=== PATIENT | male | born 1955 | race Two or more races ===

== ENCOUNTER 2019-05-19 18:46 | Inpatient (IN) | payer OTHER ==
[~2019-05-19] VITALS: Ht 172.7 cm; Wt 73.2 kg
[2019-05-19] MEDS ORDERED: IPRATROPIUM BROMIDE (0.02%) 0.5MG/2.5ML NEB HHN STA (18:58)
[2019-05-19] MEDS ORDERED: ALBUTEROL (0.083%) 2.5MG/3ML NEB HHN STA (18:58)
[2019-05-19] MEDS ORDERED: METHYLPREDNISOLONE SOD SUCC 125 MG/2 ML VIAL IV STA (18:58)
[2019-05-19] MEDS ORDERED: SUCCINYLCHOLINE CHLORIDE 200MG/10ML IV ONE ×2 (19:00→19:15)
[2019-05-19] MEDS ORDERED: MAGNESIUM 2 G PREMIX 50 ML IV ONE (19:00)
[2019-05-19] MEDS ORDERED: ETOMIDATE 2MG/ML 10ML VIAL IV ONE ×2 (19:00→19:15)
[2019-05-19] MEDS ORDERED: PROPOFOL 10MG/ML 100ML 100 ML IV SCH (19:15)
[2019-05-19] MEDS ORDERED: VECURONIUM BROMIDE 10 MG/VIAL IV ONE (19:15)
[2019-05-19 19:38] LABS: BASOPHILS % 1.3 % (0.0-2.0); EOSINOPHILS % 1.7 % (0.0-5.0); HEMATOCRIT. 41.5 % (42.0-52.0); HEMOGLOBIN. 13.3 g/dL (14.0-18.0); LYMPHOCYTES % 41.8 % (20.0-50.0); MEAN CORPUSCULAR HEMOGLOBIN 27.1 pg (28.0-32.0); MEAN CORPUSCULAR VOLUME 84.7 fL (80.0-94.0); MONOCYTES % 9.5 % (2.0-8.0); NEUTROPHILS % 45.7 % (40.0-76.0); RED CELL DISTRIBUTION WIDTH 15.4 % (11.6-14.6)
[2019-05-19 19:39] LABS: PROTHROMBIN TIME 10.5 sec (9.6-11.0)
[2019-05-19 19:41] LABS: CLARITY URINE CLEAR (CLEAR); COLOR URINE DARK YELLOW (YELLOW); KETONES URINE NEGATIVE (NEGATIVE); LEUKOCYTE ESTERASE URINE TRACE (NEGATIVE); NITRITE URINE NEGATIVE (NEGATIVE); OCCULT BLOOD URINE NEGATIVE (NEGATIVE); PH URINE 6.5 (4.5-8.0); PROTEIN URINE 1+ (NEGATIVE); SPECIFIC GRAVITY URINE 1.027 (1.005-1.030)
[2019-05-19 19:43] LABS: CHLORIDE 102 mEq/L (98-107)
[2019-05-19] MEDS ORDERED: LEVOFLOXACIN 500MG PREMIX 100 ML IV ONE (19:45)
[2019-05-19 19:48] LABS: ETHANOL BLOOD < 10 mg/dL
[2019-05-19 19:59] LABS: *AMPHETAMINES SCREEN URINE NEGATIVE (NEGATIVE); *BARBITURATES SCREEN URINE NEGATIVE (NEGATIVE); *BENZODIAZEPINES SCREEN URINE NEGATIVE (NEGATIVE); *COCAINE SCREEN URINE PRESUMTIVE POSITIVE (NEGATIVE); METHADONE URINE SCREEN NEGATIVE (NEGATIVE); OPIATES URINE SCREEN PRESUMTIVE POSITIVE (NEGATIVE)
[2019-05-19 19:59] LABS: BG BASE EXCESS -0.1 mmol/L (-2.0-2.0); BG DEOXYHEMOGLOBIN 0.7 % (0.0-5.0); BG FRACTION INSPIRED OXYGEN 100; BG HCO3 ACT 28.1 mmol/L (22.0-26.0); BG METHEMOGLOBIN 0.4 % (0.0-1.5); BG OXYGEN SATURATION 99.3 % (92.0-98.5); BG OXYHEMOGLOBIN 95.9 % (94.0-97.0); BG PCO2 61.5 mmHg (35.0-45.0); BG PH 7.278 (7.350-7.450); BG PO2 228.5 mmHg (75.0-100.0); BG SAMPLE SITE RIGHT RADIAL; BG TIDAL VOLUME(mL) 500 mL; BG TOTAL HEMOGLOBIN 14.1 g/dL (12.0-18.0); BG VENT MODE VENT - A/C; BG VENT RATE 14 set
[2019-05-19 20:00] LABS: CANNABINOID URINE SCREEN NEGATIVE (NEGATIVE); PHENCYCLIDINE URINE SCREEN NEGATIVE (NEGATIVE)
[2019-05-19] MEDS ORDERED: SODIUM CHLORIDE 0.9% 1,000 ML IV ONE (20:00)
[2019-05-19 20:01] LABS: MEAN PLATELET VOLUME 8.7 fl (7.4-10.4); PLATELET 223 x1000/uL (130-400)
[2019-05-19] MEDS ORDERED: ONDANSETRON HCL 4MG/2ML INJ IV PRN (20:15)
[2019-05-19] MEDS ORDERED: ACETAMINOPHEN 325MG TABLET PO PRN (20:15)
[2019-05-19] MEDS ORDERED: LORAZEPAM 2MG/ML CPJ IV ONE (20:15)
[2019-05-19] MEDS ORDERED: METHYLPREDNISOLONE SOD SUCC 40 MG/ML VIAL IV SCH (20:15)
[2019-05-19] MEDS ORDERED: MIDAZOLAM HCL 50 MG in DEXTROSE 5% WATER 40 ML IV ONE (20:15)
[2019-05-19] MEDS ORDERED: IPRATROPIUM/ALBUTEROL 0.5-3(2.5)MG/3ML NEB INH PRN (20:15)
[2019-05-19] MEDS ORDERED: CEFTRIAXONE 1 G PREMIX 50 ML IV SCH (20:15)
[2019-05-19] MEDS ORDERED: MIDAZOLAM HCL 50 MG in DEXTROSE 5% WATER 40 ML IV NR (20:15)
[2019-05-19] MEDS ORDERED: HYDRALAZINE 20MG/ML VIAL IV PRN (20:15)
[2019-05-19] MEDS ORDERED: IPRATROPIUM/ALBUTEROL 0.5-3(2.5)MG/3ML NEB HHN PRN (20:30)
[2019-05-19] MEDS ORDERED: FAMOTIDINE 20MG/2ML VIAL IV SCH (21:00)
[2019-05-19 21:36] LABS: CHLORIDE 106 mEq/L (98-107)
[2019-05-19] MEDS ORDERED: CEFTRIAXONE 1 G PREMIX 50 ML IV NR (22:15)
[2019-05-19] MEDS ORDERED: ENOXAPARIN 40MG/0.4ML SYR SUBCUT NR (22:45)
[2019-05-19] MEDS ORDERED: AZITHROMYCIN 500 MG in DEXT 5% WATER 250 ML IV NR (22:45)
[2019-05-19] MEDS: SODIUM CHLORIDE 0.9% 1,000 ML IV SCH (22:58)
[2019-05-20] VITALS (34 sets, daily range): BP systolic 85–147; BP diastolic 35–97
[2019-05-20] MEDS ORDERED: IPRATROPIUM/ALBUTEROL 0.5-3(2.5)MG/3ML NEB HHN SCH
[2019-05-20] MEDS: METHYLPREDNISOLONE SOD SUCC 125 MG/2 ML VIAL IV SCH ×4 (03:17→22:00)
[2019-05-20] MEDS: IPRATROPIUM/ALBUTEROL 0.5-3(2.5)MG/3ML NEB HHN SCH ×6 (04:18→23:55)
[2019-05-20 05:26] LABS: BASOPHILS % 0.2 % (0.0-2.0); HEMATOCRIT. 43.3 % (42.0-52.0); LYMPHOCYTES % 7.7 % (20.0-50.0); MEAN CORPUSCULAR HEMOGLOBIN 27.3 pg (28.0-32.0); MEAN CORPUSCULAR VOLUME 84.4 fL (80.0-94.0); MEAN PLATELET VOLUME 8.6 fl (7.4-10.4); MONOCYTES % 3.9 % (2.0-8.0); NEUTROPHILS % 88.2 % (40.0-76.0); PLATELET 153 x1000/uL (130-400); RED BLOOD CELL COUNT 5.13 mill/uL (4.7-6.1); RED CELL DISTRIBUTION WIDTH 15.2 % (11.6-14.6)
[2019-05-20] MEDS: PANTOPRAZOLE SODIUM 40 MG/VIAL IV SCH (05:37)
[2019-05-20 05:48] LABS: CREATINE KINASE MB FRACTION 4.8 ng/mL (0.5-3.6)
[2019-05-20 07:56] LABS: BG BASE EXCESS -1.3 mmol/L (-2.0-2.0); BG CARBOXYHEMOGLOBIN 0.9 % (0.5-1.5); BG DEOXYHEMOGLOBIN 3.9 % (0.0-5.0); BG FRACTION INSPIRED OXYGEN 40; BG HCO3 ACT 23.2 mmol/L (22.0-26.0); BG OXYGEN SATURATION 96.1 % (92.0-98.5); BG OXYHEMOGLOBIN 95.2 % (94.0-97.0); BG PCO2 38.6 mmHg (35.0-45.0); BG PH 7.397 (7.350-7.450); BG SAMPLE SITE RIGHT RADIAL; BG TIDAL VOLUME(mL) 500 mL; BG VENT MODE VENT - A/C; BG VENT RATE 14 set
[2019-05-20] MEDS ORDERED: CLONIDINE 0.1MG TABLET PO PRN (08:00)
[2019-05-20] MEDS: SODIUM CHLORIDE 0.9% 1,000 ML IV SCH (08:19)
[2019-05-20] MEDS: PROPOFOL 10MG/ML 100ML 100 ML IV PRN ×4 (08:20→19:37)
[2019-05-20] MEDS: LORATADINE 10MG TABLET PO SCH (08:23)
[2019-05-20] MEDS: DEXT 5%/0.45% NACL KCL 20MEQ/L 1,000 ML IV SCH ×2 (11:21→21:37)
[2019-05-20] MEDS ORDERED: METRONIDAZOLE 500 MG PREMIX 100 ML IV SCH (12:00)
[2019-05-20] MEDS ORDERED: CEFEPIME 1,000 MG in DEXTROSE 5% WATER 50 ML IV SCH (12:00)
[2019-05-20 12:08] LABS: HEPATITIS B SURFACE ANTIGEN NEGATIVE
[2019-05-20 12:38] LABS: HEPATITIS A AB IGM NEGATIVE (NEGATIVE)
[2019-05-20] MEDS ORDERED: MET5 MT (13:00)
[2019-05-20] MEDS ORDERED: LISI40TA4 PO (13:00)
[2019-05-20] MEDS ORDERED: CLON2TAB11 PO (13:00)
[2019-05-20] MEDS ORDERED: ASPI-1393 PO (13:00)
[2019-05-20] MEDS ORDERED: OXYC30TA89 PO (13:00)
[2019-05-20] MEDS ORDERED: LIDOCAINE HCL 1% 20ML VIAL (Pyxis) INJ ONE (13:36)
[2019-05-20] MEDS ORDERED: IOHEXOL-350 100 ML BOTTLE ONE (15:08)
[2019-05-20 16:08] LABS: CHLORIDE 104 mEq/L (98-107)
[2019-05-20] MEDS: ACETYLCYSTEINE 100MG/ML 10% VIAL 4ML INH SCH ×2 (16:12→23:55)
[2019-05-20 16:19] LABS: CREATINE KINASE 255 IU/L (39-308)
[2019-05-20] MEDS: MONTELUKAST SODIUM 10MG TABLET PO SCH (17:00)
[2019-05-20] MEDS: PIPERACILLIN/TAZOBACTAM 3.375 G in DEXT 5% WATER 100 ML IV SCH (22:00)
[2019-05-20] MEDS ORDERED: CEFTRIAXONE 1 G PREMIX 50 ML IV SCH (22:00)
[2019-05-20] MEDS: ENOXAPARIN 40MG/0.4ML SYR SUBCUT SCH (22:02)
[2019-05-20] MEDS ORDERED: VANCOMYCIN 1500MG in DEXTROSE 5% WATER 250ML IV SCH (23:00)
[2019-05-21] VITALS (90 sets, daily range): BP systolic 118–157; BP diastolic 67–104
[2019-05-21 00:53] LABS: CREATINE KINASE MB FRACTION 3.3 ng/mL (0.5-3.6)
[2019-05-21] MEDS: PROPOFOL 10MG/ML 100ML 100 ML IV PRN ×5 (01:48→22:50)
[2019-05-21] MEDS ORDERED: AZITHROMYCIN 500 MG in DEXT 5% WATER 250 ML IV SCH (05:00)
[2019-05-21 05:31] LABS: HEMATOCRIT. 42.5 % (42.0-52.0); HEMOGLOBIN. 13.7 g/dL (14.0-18.0); MEAN CORPUSCULAR HEMOGLOBIN 26.8 pg (28.0-32.0); MEAN CORPUSCULAR VOLUME 83.1 fL (80.0-94.0); MEAN PLATELET VOLUME 8.9 fl (7.4-10.4); PLATELET 184 x1000/uL (130-400); RED BLOOD CELL COUNT 5.11 mill/uL (4.7-6.1); RED CELL DISTRIBUTION WIDTH 15.4 % (11.6-14.6)
[2019-05-21 05:33] LABS: CHLORIDE 108 mEq/L (98-107)
[2019-05-21] MEDS: METHYLPREDNISOLONE SOD SUCC 125 MG/2 ML VIAL IV SCH ×2 (05:59→08:08)
[2019-05-21] MEDS: PIPERACILLIN/TAZOBACTAM 3.375 G in DEXT 5% WATER 100 ML IV SCH ×4 (05:59→22:10)
[2019-05-21] MEDS: DEXT 5%/0.45% NACL KCL 20MEQ/L 1,000 ML IV SCH ×4 (06:00→22:11)
[2019-05-21] MEDS: PANTOPRAZOLE SODIUM 40 MG/VIAL IV SCH ×2 (06:14→20:50)
[2019-05-21] MEDS ORDERED: VANCOMYCIN 1 G PREMIX 200 ML IV SCH (07:00)
[2019-05-21 07:25] LABS: PLATELET ESTIMATE NORMAL
[2019-05-21] MEDS: LORATADINE 10MG TABLET PO SCH (08:08)
[2019-05-21 08:39] LABS: BG BASE EXCESS 1.6 mmol/L (-2.0-2.0); BG CARBOXYHEMOGLOBIN 0.5 % (0.5-1.5); BG DEOXYHEMOGLOBIN 4.3 % (0.0-5.0); BG FRACTION INSPIRED OXYGEN 40; BG HCO3 ACT 24.4 mmol/L (22.0-26.0); BG METHEMOGLOBIN 0.3 % (0.0-1.5); BG OXYGEN SATURATION 95.7 % (92.0-98.5); BG OXYHEMOGLOBIN 94.9 % (94.0-97.0); BG PCO2 33.4 mmHg (35.0-45.0); BG PH 7.482 (7.350-7.450); BG PO2 73.5 mmHg (75.0-100.0); BG SAMPLE SITE RIGHT RADIAL; BG TIDAL VOLUME(mL) 500 mL; BG TOTAL HEMOGLOBIN 14.6 g/dL (12.0-18.0); BG VENT MODE VENT - A/C; BG VENT RATE 14 set
[2019-05-21] MEDS: IPRATROPIUM/ALBUTEROL 0.5-3(2.5)MG/3ML NEB HHN SCH ×4 (08:56→20:34)
[2019-05-21] MEDS: ACETYLCYSTEINE 100MG/ML 10% VIAL 4ML INH SCH ×2 (08:56→15:56)
[2019-05-21] MEDS: METHYLPREDNISOLONE SOD SUCC 40 MG/ML VIAL IV SCH ×2 (13:54→22:09)
[2019-05-21] MEDS: AMLODIPINE 2.5MG TABLET PO SCH ×2 (13:54→20:51)
[2019-05-21] MEDS: MONTELUKAST SODIUM 10MG TABLET PO SCH (16:00)
[2019-05-21] MEDS: VANCOMYCIN 1500MG in DEXTROSE 5% WATER 250ML IV SCH (20:03)
[2019-05-21] MEDS: ENOXAPARIN 40MG/0.4ML SYR SUBCUT SCH (20:51)
[2019-05-22] VITALS (86 sets, daily range): BP systolic 116–158; BP diastolic 65–103
[2019-05-22] MEDS: ACETYLCYSTEINE 100MG/ML 10% VIAL 4ML INH SCH ×2 (00:11→09:06)
[2019-05-22] MEDS: IPRATROPIUM/ALBUTEROL 0.5-3(2.5)MG/3ML NEB HHN SCH ×6 (00:11→20:04)
[2019-05-22] MEDS: PIPERACILLIN/TAZOBACTAM 3.375 G in DEXT 5% WATER 100 ML IV SCH ×4 (03:17→22:24)
[2019-05-22] MEDS: PROPOFOL 10MG/ML 100ML 100 ML IV PRN ×3 (03:18→20:48)
[2019-05-22 05:51] LABS: HEMATOCRIT. 44.4 % (42.0-52.0); HEMOGLOBIN. 14.5 g/dL (14.0-18.0); MEAN CORPUSCULAR HEMOGLOBIN 27.1 pg (28.0-32.0); MEAN CORPUSCULAR VOLUME 83.1 fL (80.0-94.0); MEAN PLATELET VOLUME 8.8 fl (7.4-10.4); PLATELET 185 x1000/uL (130-400); RED BLOOD CELL COUNT 5.34 mill/uL (4.7-6.1); RED CELL DISTRIBUTION WIDTH 15.2 % (11.6-14.6)
[2019-05-22 05:58] LABS: CHLORIDE 107 mEq/L (98-107)
[2019-05-22 06:05] LABS: LDL CHOLESTEROL 108 mg/dL (5-100)
[2019-05-22 06:06] LABS: CREATINE KINASE 114 IU/L (39-308)
[2019-05-22 06:08] LABS: HDL CHOLESTEROL 64 mg/dL (40-59)
[2019-05-22] MEDS: METHYLPREDNISOLONE SOD SUCC 40 MG/ML VIAL IV SCH ×2 (06:08→18:34)
[2019-05-22 06:09] LABS: CREATINE KINASE MB FRACTION 1.2 ng/mL (0.5-3.6)
[2019-05-22] MEDS: VANCOMYCIN 1500MG in DEXTROSE 5% WATER 250ML IV SCH (06:09)
[2019-05-22] MEDS: DEXT 5%/0.45% NACL KCL 20MEQ/L 1,000 ML IV SCH ×2 (06:09→10:34)
[2019-05-22 06:51] LABS: PLATELET ESTIMATE NORMAL
[2019-05-22] MEDS ORDERED: PROPOFOL 10MG/ML 100ML 100 ML IV PRN (08:00)
[2019-05-22] MEDS: LORATADINE 10MG TABLET PO SCH (08:28)
[2019-05-22] MEDS: AMLODIPINE 2.5MG TABLET PO SCH ×2 (08:28→22:10)
[2019-05-22] MEDS: PANTOPRAZOLE SODIUM 40 MG/VIAL IV SCH ×2 (08:28→22:10)
[2019-05-22 08:33] LABS: BG BASE EXCESS 0.9 mmol/L (-2.0-2.0); BG CARBOXYHEMOGLOBIN 0.1 % (0.5-1.5); BG DEOXYHEMOGLOBIN 3.9 % (0.0-5.0); BG FRACTION INSPIRED OXYGEN 40; BG HCO3 ACT 24.3 mmol/L (22.0-26.0); BG METHEMOGLOBIN 0.1 % (0.0-1.5); BG OXYGEN SATURATION 96.1 % (92.0-98.5); BG OXYHEMOGLOBIN 95.9 % (94.0-97.0); BG PCO2 35.4 mmHg (35.0-45.0); BG PH 7.455 (7.350-7.450); BG PO2 78.6 mmHg (75.0-100.0); BG SAMPLE SITE RIGHT RADIAL; BG TIDAL VOLUME(mL) 500 mL; BG TOTAL HEMOGLOBIN 14.8 g/dL (12.0-18.0); BG VENT MODE VENT - A/C; BG VENT RATE 14 set
[2019-05-22] MEDS: VANCOMYCIN 1250MG in DEXTROSE 5% WATER 250ML IV SCH (18:34)
[2019-05-22] MEDS: MONTELUKAST SODIUM 10MG TABLET PO SCH (18:34)
[2019-05-22] MEDS: ENOXAPARIN 40MG/0.4ML SYR SUBCUT SCH (22:11)
[2019-05-23] VITALS (96 sets, daily range): BP systolic 113–191; BP diastolic 36–150
[2019-05-23] MEDS: IPRATROPIUM/ALBUTEROL 0.5-3(2.5)MG/3ML NEB HHN SCH ×6 (00:05→20:48)
[2019-05-23] MEDS: PROPOFOL 10MG/ML 100ML 100 ML IV PRN ×2 (01:30→05:04)
[2019-05-23] MEDS: DEXT 5%/0.45% NACL KCL 20MEQ/L 1,000 ML IV SCH ×2 (01:35→20:25)
[2019-05-23] MEDS: VANCOMYCIN 1250MG in DEXTROSE 5% WATER 250ML IV SCH ×3 (01:35→16:55)
[2019-05-23 05:01] LABS: BASOPHILS % 0.5 % (0.0-2.0); HEMOGLOBIN. 14.4 g/dL (14.0-18.0); LYMPHOCYTES % 8.9 % (20.0-50.0); MEAN CORPUSCULAR HEMOGLOBIN 27.2 pg (28.0-32.0); MEAN PLATELET VOLUME 9.1 fl (7.4-10.4); NEUTROPHILS % 83.6 % (40.0-76.0); PLATELET 165 x1000/uL (130-400); RED CELL DISTRIBUTION WIDTH 15.2 % (11.6-14.6)
[2019-05-23] MEDS: PIPERACILLIN/TAZOBACTAM 3.375 G in DEXT 5% WATER 100 ML IV SCH ×4 (05:04→21:47)
[2019-05-23 05:08] LABS: CHLORIDE 105 mEq/L (98-107)
[2019-05-23] MEDS: METHYLPREDNISOLONE SOD SUCC 40 MG/ML VIAL IV SCH ×2 (06:15→16:54)
[2019-05-23] MEDS ORDERED: POLYETHYLENE GLYCOL 3350 (17GM) 1 DOSE PACK PO PRN (08:00)
[2019-05-23] MEDS ORDERED: LORAZEPAM 2MG/ML CPJ IV NR (09:45)
[2019-05-23] MEDS: PANTOPRAZOLE SODIUM 40 MG/VIAL IV SCH ×2 (09:49→21:48)
[2019-05-23] MEDS ORDERED: MORPHINE SULFATE 2 MG/ML CPJ (NOT FOR IM USE) IV NR (10:15)
[2019-05-23 11:03] LABS: BG BASE EXCESS 2.3 mmol/L (-2.0-2.0); BG CARBOXYHEMOGLOBIN 0.2 % (0.5-1.5); BG FRACTION INSPIRED OXYGEN 40; BG HCO3 ACT 26.5 mmol/L (22.0-26.0); BG METHEMOGLOBIN 0.4 % (0.0-1.5); BG OXYHEMOGLOBIN 93.4 % (94.0-97.0); BG PCO2 39.9 mmHg (35.0-45.0); BG PO2 68.7 mmHg (75.0-100.0); BG PRESSURE SUPPORT 8; BG SAMPLE SITE LEFT BRACHIAL; BG TOTAL HEMOGLOBIN 15.9 g/dL (12.0-18.0); BG VENT MODE VENT - CPAP
[2019-05-23] MEDS: FENTANYL CITRATE/PF 500 MCG in SODIUM CHLORIDE 0.9% 40 ML IV PRN ×2 (12:53→22:54)
[2019-05-23] MEDS: AMLODIPINE 2.5MG TABLET PO SCH ×2 (16:47→21:00)
[2019-05-23] MEDS: LORATADINE 10MG TABLET PO SCH (16:47)
[2019-05-23] MEDS: QUETIAPINE FUMARATE 25MG TABLET PO SCH (16:54)
[2019-05-23] MEDS: FOLIC ACID 1MG TABLET NG SCH (16:54)
[2019-05-23] MEDS: MONTELUKAST SODIUM 10MG TABLET PO SCH (16:55)
[2019-05-23] MEDS: THIAMINE HCL 100MG TABLET NG SCH (16:55)
[2019-05-23] MEDS: ENOXAPARIN 40MG/0.4ML SYR SUBCUT SCH (21:48)
[2019-05-23] MEDS: LORAZEPAM 2MG/ML CPJ IV PRN (21:48)
[2019-05-24] VITALS (87 sets, daily range): BP systolic 87–125; BP diastolic 24–85
[2019-05-24] MEDS: VANCOMYCIN 1250MG in DEXTROSE 5% WATER 250ML IV SCH ×2 (01:51→10:30)
[2019-05-24] MEDS: IPRATROPIUM/ALBUTEROL 0.5-3(2.5)MG/3ML NEB HHN SCH ×6 (02:47→20:00)
[2019-05-24] MEDS: PIPERACILLIN/TAZOBACTAM 3.375 G in DEXT 5% WATER 100 ML IV SCH ×4 (04:20→21:16)
[2019-05-24] MEDS: METHYLPREDNISOLONE SOD SUCC 40 MG/ML VIAL IV SCH ×2 (05:24→17:31)
[2019-05-24] MEDS: FENTANYL CITRATE/PF 500 MCG in SODIUM CHLORIDE 0.9% 40 ML IV PRN ×3 (05:24→22:34)
[2019-05-24 05:34] LABS: BASOPHILS % 0.3 % (0.0-2.0); EOSINOPHILS % 0.1 % (0.0-5.0); HEMOGLOBIN. 14.5 g/dL (14.0-18.0); LYMPHOCYTES % 14.3 % (20.0-50.0); MEAN CORPUSCULAR VOLUME 83.8 fL (80.0-94.0); MONOCYTES % 10.3 % (2.0-8.0); RED BLOOD CELL COUNT 5.38 mill/uL (4.7-6.1); RED CELL DISTRIBUTION WIDTH 15.1 % (11.6-14.6)
[2019-05-24 05:39] LABS: CHLORIDE 103 mEq/L (98-107)
[2019-05-24 07:04] LABS: MEAN PLATELET VOLUME 8.6 fl (7.4-10.4); PLATELET 160 x1000/uL (130-400)
[2019-05-24 07:17] LABS: HIV SCREEN 4G Non Reactive (Non Reactive)
[2019-05-24] MEDS: DEXT 5%/0.45% NACL KCL 20MEQ/L 1,000 ML IV SCH (08:04)
[2019-05-24] MEDS: PANTOPRAZOLE SODIUM 40 MG/VIAL IV SCH ×2 (09:46→20:27)
[2019-05-24] MEDS: FUROSEMIDE 40MG/4ML VIAL IVP SCH (09:47)
[2019-05-24] MEDS: FOLIC ACID 1MG TABLET NG SCH (10:27)
[2019-05-24] MEDS: THIAMINE HCL 100MG TABLET NG SCH (10:28)
[2019-05-24] MEDS: AMLODIPINE 2.5MG TABLET PO SCH ×2 (10:28→20:28)
[2019-05-24] MEDS: LORATADINE 10MG TABLET PO SCH (10:28)
[2019-05-24] MEDS: POTASSIUM CHLORIDE 20MEQ/PACKET PO SCH (10:29)
[2019-05-24] MEDS: QUETIAPINE FUMARATE 25MG TABLET PO SCH (10:29)
[2019-05-24] MEDS: LORAZEPAM 2MG/ML CPJ IV PRN ×2 (10:33→20:14)
[2019-05-24] MEDS: MONTELUKAST SODIUM 10MG TABLET PO SCH (16:26)
[2019-05-24 17:11] LABS: BG BASE EXCESS 3.9 mmol/L (-2.0-2.0); BG CARBOXYHEMOGLOBIN 0.6 % (0.5-1.5); BG DEOXYHEMOGLOBIN 5.3 % (0.0-5.0); BG FRACTION INSPIRED OXYGEN 35; BG HCO3 ACT 29.3 mmol/L (22.0-26.0); BG METHEMOGLOBIN 0.2 % (0.0-1.5); BG OXYGEN SATURATION 94.7 % (92.0-98.5); BG OXYHEMOGLOBIN 93.9 % (94.0-97.0); BG PCO2 46.8 mmHg (35.0-45.0); BG PH 7.415 (7.350-7.450); BG PO2 72.1 mmHg (75.0-100.0); BG PRESSURE SUPPORT 12; BG SAMPLE SITE RIGHT RADIAL; BG TIDAL VOLUME(mL) 500 mL; BG TOTAL HEMOGLOBIN 15.9 g/dL (12.0-18.0); BG VENT MODE VENT - SIMV; BG VENT RATE 8 set
[2019-05-24] MEDS: VANCOMYCIN 1 G PREMIX 200 ML IV SCH (17:32)
[2019-05-24] MEDS: ENOXAPARIN 40MG/0.4ML SYR SUBCUT SCH (20:28)
[2019-05-25] VITALS (83 sets, daily range): BP systolic 71–121; BP diastolic 48–99
[2019-05-25] MEDS: VANCOMYCIN 1 G PREMIX 200 ML IV SCH ×3 (00:12→17:17)
[2019-05-25] MEDS: IPRATROPIUM/ALBUTEROL 0.5-3(2.5)MG/3ML NEB HHN SCH ×5 (00:18→20:47)
[2019-05-25] MEDS: LORAZEPAM 2MG/ML CPJ IV PRN ×2 (01:47→12:24)
[2019-05-25] MEDS: PIPERACILLIN/TAZOBACTAM 3.375 G in DEXT 5% WATER 100 ML IV SCH ×4 (03:02→21:15)
[2019-05-25] MEDS: FENTANYL CITRATE/PF 500 MCG in SODIUM CHLORIDE 0.9% 40 ML IV PRN ×2 (03:14→08:28)
[2019-05-25] MEDS: METHYLPREDNISOLONE SOD SUCC 40 MG/ML VIAL IV SCH ×2 (05:02→17:13)
[2019-05-25 05:22] LABS: BASOPHILS % 0.2 % (0.0-2.0); CHLORIDE 99 mEq/L (98-107); HEMATOCRIT. 44.1 % (42.0-52.0); HEMOGLOBIN. 14.6 g/dL (14.0-18.0); MEAN CORPUSCULAR HEMOGLOBIN 27.2 pg (28.0-32.0); MEAN CORPUSCULAR VOLUME 82.4 fL (80.0-94.0); MEAN PLATELET VOLUME 8.5 fl (7.4-10.4); NEUTROPHILS % 75.8 % (40.0-76.0); PLATELET 194 x1000/uL (130-400); RED BLOOD CELL COUNT 5.35 mill/uL (4.7-6.1); RED CELL DISTRIBUTION WIDTH 14.7 % (11.6-14.6)
[2019-05-25 08:26] LABS: BG BASE EXCESS 1.2 mmol/L (-2.0-2.0); BG CARBOXYHEMOGLOBIN 0.6 % (0.5-1.5); BG DEOXYHEMOGLOBIN 6.3 % (0.0-5.0); BG FRACTION INSPIRED OXYGEN 35; BG HCO3 ACT 25.2 mmol/L (22.0-26.0); BG METHEMOGLOBIN 0.3 % (0.0-1.5); BG OXYGEN SATURATION 93.6 % (92.0-98.5); BG OXYHEMOGLOBIN 92.8 % (94.0-97.0); BG PCO2 38.3 mmHg (35.0-45.0); BG PH 7.436 (7.350-7.450); BG PO2 68.4 mmHg (75.0-100.0); BG PRESSURE SUPPORT 12; BG SAMPLE SITE RIGHT RADIAL; BG TIDAL VOLUME(mL) 500 mL; BG TOTAL HEMOGLOBIN 15.6 g/dL (12.0-18.0); BG VENT MODE VENT - SIMV; BG VENT RATE 8 set
[2019-05-25] MEDS: THIAMINE HCL 100MG TABLET NG SCH (08:37)
[2019-05-25] MEDS: PANTOPRAZOLE SODIUM 40 MG/VIAL IV SCH ×2 (08:37→20:01)
[2019-05-25] MEDS: QUETIAPINE FUMARATE 25MG TABLET PO SCH (08:37)
[2019-05-25] MEDS: LORATADINE 10MG TABLET PO SCH (08:37)
[2019-05-25] MEDS: FUROSEMIDE 40MG/4ML VIAL IVP SCH (08:37)
[2019-05-25] MEDS: FOLIC ACID 1MG TABLET NG SCH (08:37)
[2019-05-25] MEDS: POTASSIUM CHLORIDE 20MEQ/PACKET PO SCH (08:37)
[2019-05-25] MEDS: AMLODIPINE 2.5MG TABLET PO SCH ×2 (08:38→20:03)
[2019-05-25] MEDS: MORPHINE SULFATE 2 MG/ML CPJ (NOT FOR IM USE) IV PRN ×3 (09:15→17:49)
[2019-05-25 13:46] LABS: BG BASE EXCESS 6.9 mmol/L (-2.0-2.0); BG CARBOXYHEMOGLOBIN 0.5 % (0.5-1.5); BG DEOXYHEMOGLOBIN 9.5 % (0.0-5.0); BG FRACTION INSPIRED OXYGEN 40; BG HCO3 ACT 31.5 mmol/L (22.0-26.0); BG METHEMOGLOBIN 0.4 % (0.0-1.5); BG OXYGEN SATURATION 90.4 % (92.0-98.5); BG OXYHEMOGLOBIN 89.6 % (94.0-97.0); BG PCO2 44.3 mmHg (35.0-45.0); BG PO2 55.4 mmHg (75.0-100.0); BG PRESSURE SUPPORT 12; BG SAMPLE SITE RIGHT RADIAL; BG TOTAL HEMOGLOBIN 15.8 g/dL (12.0-18.0); BG VENT MODE VENT - CPAP
[2019-05-25] MEDS: MONTELUKAST SODIUM 10MG TABLET PO SCH (17:13)
[2019-05-25] MEDS ORDERED: MORPHINE SULFATE 2 MG/ML CPJ (NOT FOR IM USE) IV PRN (18:00)
[2019-05-25] MEDS: ENOXAPARIN 40MG/0.4ML SYR SUBCUT SCH (20:00)
[2019-05-28 04:13] LABS: INFLUENZA A AB CF 1:16 (Neg:<1:8)
== END 2019-05-25 23:15 | disposition left against medical advice (07) | DRG 720 ==
LOC: ER 18:46 → EDBEDREQ 18:58 → MICUNO 19:44 → EDBEDREQ 19:56 → EDBEDREQTM 19:56 → ENRESERV 05-20 01:38
PROVIDERS: ADMIT Internal Medicine; ATTEND Internal Medicine
PROC: 5A1955Z Respiratory Ventilation, Greater than 96 Consecutive Hours (ICD-10-PCS; 2019-05-19)
PROC: 0BH17EZ Insertion of Endotracheal Airway into Trachea, Via Natural or Artificial Opening (ICD-10-PCS; 2019-05-19)
PROC: 02HV33Z Insertion of Infusion Device into Superior Vena Cava, Percutaneous Approach (ICD-10-PCS; principal; 2019-05-20)
PROC: B548ZZA Ultrasonography of Superior Vena Cava, Guidance (ICD-10-PCS; 2019-05-20)
DX: A41.9 Sepsis, unspecified organism (principal); J96.02 Acute respiratory failure with hypercapnia; J69.0 Pneumonitis due to inhalation of food and vomit; G92 Toxic encephalopathy; I50.23 Acute on chronic systolic (congestive) heart failure; J43.9 Emphysema, unspecified; E46 Unspecified protein-calorie malnutrition; T17.890A Other foreign object in other parts of respiratory tract causing asphyxiation, initial encounter; J68.0 Bronchitis and pneumonitis due to chemicals, gases, fumes and vapors; J45.901 Unspecified asthma with (acute) exacerbation; E87.5 Hyperkalemia; I42.9 Cardiomyopathy, unspecified; M62.82 Rhabdomyolysis; E78.1 Pure hyperglyceridemia; F14.10 Cocaine abuse, uncomplicated; I11.0 Hypertensive heart disease with heart failure; K83.8 Other specified diseases of biliary tract; B18.2 Chronic viral hepatitis C; D72.823 Leukemoid reaction; T38.0X5A Adverse effect of glucocorticoids and synthetic analogues, initial encounter; X58.XXXA Exposure to other specified factors, initial encounter; Y93.89 Activity, other specified; Y92.89 Other specified places as the place of occurrence of the external cause; Z78.1 Physical restraint status; Z79.899 Other long term (current) drug therapy; Z68.24 Body mass index [BMI] 24.0-24.9, adult; Z79.82 Long term (current) use of aspirin
CPT/HCPCS: 36415; 36600; 71045; 71275; 74018; 76700; 76937; 80048; 80061; 80076; 80202; 80305; 80320; 81003; 82375; 82550; 82553; 82805; 82962; 83036; 83605; 83735; 83880; 84145; 84443; 84478; 84484; 85379; 86705; 86709; 86710; 86803; 87340; 87389; 93005; 93306; 93970; 94002; 94003; 94640; 96374; 99285; C1725; C9113; J0330; J0456; J0692; J0696; J1650; J1940; J1956; J2060; J2250; J2270; J2405; J2543; J2704; J2920; J2930; J3010; J3370; J3475; J3490; J7030; J7060; J7608; J7611; J7620; Q9967; G0480

== ENCOUNTER 2019-08-13 02:12 | Emergency (ER) | payer OTHER ==
[~2019-08-13] VITALS: Ht 182.9 cm; Wt 87.0 kg
[~2019-08-13 02:12] MED LIST: ASPI-1393 PO; CLON2TAB11 PO; LISI40TA4 PO; MET5 MT; OXYC30TA89 PO
[2019-08-13 04:34] LABS: HEMATOCRIT. 38.8 % (42.0-52.0); HEMOGLOBIN. 12.5 g/dL (14.0-18.0); MEAN CORPUSCULAR VOLUME 83.9 fL (80.0-94.0); MEAN PLATELET VOLUME 8.1 fl (7.4-10.4); PLATELET 113 x1000/uL (130-400); RED BLOOD CELL COUNT 4.62 mill/uL (4.7-6.1); RED CELL DISTRIBUTION WIDTH 16.6 % (11.6-14.6)
[2019-08-13 04:40] LABS: CHLORIDE 103 mEq/L (98-107)
[2019-08-13 04:54] LABS: PLATELET ESTIMATE DECREASED
[2019-08-13] MEDS ORDERED: IPRATROPIUM BROMIDE (0.02%) 0.5MG/2.5ML NEB HHN STA (05:22)
[2019-08-13] MEDS ORDERED: ALBUTEROL (0.083%) 2.5MG/3ML NEB HHN STA (05:22)
[2019-08-13 06:20] VITALS: BP 134/83
== END 2019-08-13 07:09 | disposition home or self-care (01) ==
LOC: ER 02:12
DX: L02.413 Cutaneous abscess of right upper limb (principal); J20.9 Acute bronchitis, unspecified
CPT/HCPCS: 36415; 71045; 80053; 83880; 84484; 85025; 93005; 94640; 99283; J7611; Z7610

== ENCOUNTER 2019-09-13 04:57 | Emergency (ER) | payer OTHER ==
[~2019-09-13] VITALS: Ht 182.9 cm; Wt 79.0 kg
[2019-09-13] MEDS ORDERED: ALBUTEROL (0.083%) 2.5MG/3ML NEB HHN STA (06:10)
[2019-09-13] MEDS ORDERED: IPRATROPIUM BROMIDE (0.02%) 0.5MG/2.5ML NEB HHN STA (06:10)
[2019-09-13] MEDS ORDERED: METHYLPREDNISOLONE SOD SUCC 125 MG/2 ML VIAL IV STA (06:10)
[2019-09-13 06:38] LABS: BASOPHILS % 0.5 % (0.0-2.0); EOSINOPHILS % 1.2 % (0.0-5.0); HEMATOCRIT. 36.7 % (42.0-52.0); HEMOGLOBIN. 11.9 g/dL (14.0-18.0); LYMPHOCYTES % 14.8 % (20.0-50.0); MEAN CORPUSCULAR HEMOGLOBIN 26.9 pg (28.0-32.0); MEAN CORPUSCULAR VOLUME 82.8 fL (80.0-94.0); MONOCYTES % 12.7 % (2.0-8.0); NEUTROPHILS % 70.8 % (40.0-76.0); PLATELET 154 x1000/uL (130-400); RED BLOOD CELL COUNT 4.43 mill/uL (4.7-6.1); RED CELL DISTRIBUTION WIDTH 15.9 % (11.6-14.6)
[2019-09-13 06:47] LABS: CHLORIDE 101 mEq/L (98-107)
[2019-09-13] MEDS ORDERED: CEFTRIAXONE 1 G PREMIX 50 ML IV ONE (07:30)
[2019-09-13] MEDS ORDERED: AZITHROMYCIN 500 MG in DEXT 5% WATER 250 ML IV SCH (07:30)
[2019-09-13 08:16] LABS: BG BASE EXCESS 1.4 mmol/L (-2.0-2.0); BG CARBOXYHEMOGLOBIN 1.9 % (0.5-1.5); BG DEOXYHEMOGLOBIN 8.6 % (0.0-5.0); BG FRACTION INSPIRED OXYGEN 21; BG HCO3 ACT 25.8 mmol/L (22.0-26.0); BG METHEMOGLOBIN 0.1 % (0.0-1.5); BG OXYGEN SATURATION 91.2 % (92.0-98.5); BG OXYHEMOGLOBIN 89.4 % (94.0-97.0); BG PH 7.427 (7.350-7.450); BG PO2 56.9 mmHg (75.0-100.0); BG SAMPLE SITE RIGHT BRACHIAL; BG TOTAL HEMOGLOBIN 11.9 g/dL (12.0-18.0); BG VENT MODE ROOM AIR
[2019-09-13 11:40] VITALS: BP 112/69
[2019-09-13] MEDS ORDERED: IPRATROPIUM/ALBUTEROL 0.5-3(2.5)MG/3ML NEB HHN PRN (11:45)
[2019-09-13] MEDS ORDERED: NICOTINE 14MG PATCH TD SCH (11:45)
[2019-09-13] MEDS ORDERED: BUDESONIDE 0.5MG/2ML NEB HHN SCH (11:45)
[2019-09-13] MEDS ORDERED: IPRATROPIUM/ALBUTEROL 0.5-3(2.5)MG/3ML NEB HHN SCH (12:00)
[2019-09-13] MEDS ORDERED: GUAIFENESIN 600MG ER TABLET PO SCH (21:00)
[2019-09-13] MEDS ORDERED: FLUTICASONE PROPIONATE 50MCG/SPRAY BOTTLE BOTHNSTRLS SCH (21:00)
== END 2019-09-13 11:40 | disposition left against medical advice (07) ==
LOC: ER 05:25 → CANBEDREQ 15:56
DX: R09.02 Hypoxemia (principal); J18.9 Pneumonia, unspecified organism; J44.9 Chronic obstructive pulmonary disease, unspecified; I11.9 Hypertensive heart disease without heart failure; F17.200 Nicotine dependence, unspecified, uncomplicated; Z88.6 Allergy status to analgesic agent; Z79.82 Long term (current) use of aspirin; Z85.89 Personal history of malignant neoplasm of other organs and systems
CPT/HCPCS: 36415; 36600; 71045; 80053; 82375; 82805; 83880; 84484; 85025; 87804; 93005; 96365; 96368; 96375; 99285; J0456; J0696; J2930; J7060; J7611; Z7610

== ENCOUNTER 2019-10-24 03:16 | Inpatient (IN) | payer OTHER ==
[~2019-10-24] VITALS: Ht 182.9 cm; Wt 72.6 kg
[2019-10-24] VITALS (7 sets, daily range): BP systolic 124–144; BP diastolic 71–94
[~2019-10-24 03:16] MED LIST changes: -ASPI-1393 PO; +ASPI-1497 PO
[2019-10-24] MEDS ORDERED: MAGNESIUM 2 G PREMIX 50 ML IV STA (03:46)
[2019-10-24] MEDS ORDERED: IPRATROPIUM BROMIDE (0.02%) 0.5MG/2.5ML NEB HHN STA (03:46)
[2019-10-24] MEDS ORDERED: ALBUTEROL (0.083%) 2.5MG/3ML NEB HHN STA (03:46)
[2019-10-24] MEDS ORDERED: METHYLPREDNISOLONE SOD SUCC 125 MG/2 ML VIAL IV STA (03:46)
[2019-10-24 04:25] LABS: HEMATOCRIT 45.3 % (42.0-52.0); HEMOGLOBIN 14.5 g/dL (14.0-18.0); MEAN CORPUSCULAR HEMOGLOBIN 26.8 pg (28.0-32.0); MEAN CORPUSCULAR VOLUME 83.6 fL (80.0-94.0); PLATELET 147 x1000/uL (130-400); RED BLOOD CELL COUNT 5.41 mill/uL (4.7-6.1); RED CELL DISTRIBUTION WIDTH 16.5 % (11.6-14.6)
[2019-10-24 05:45] LABS: CHLORIDE 105 mEq/L (98-107)
[2019-10-24] MEDS ORDERED: IPRATROPIUM/ALBUTEROL 0.5-3(2.5)MG/3ML NEB HHN PRN (11:00)
[2019-10-24] MEDS ORDERED: ACETAMINOPHEN 325MG TABLET PO PRN (11:00)
[2019-10-24] MEDS ORDERED: BENZONATATE 100MG CAPSULE PO PRN (11:00)
[2019-10-24] MEDS ORDERED: ONDANSETRON HCL 4MG/2ML INJ IV PRN (11:00)
[2019-10-24] MEDS ORDERED: DIATR MEGLU/DIATRIZOATE SOLN 30ML PO NR (12:00)
[2019-10-24] MEDS: IPRATROPIUM/ALBUTEROL 0.5-3(2.5)MG/3ML NEB HHN SCH ×3 (12:42→20:39)
[2019-10-24] MEDS: LOSARTAN POTASSIUM 50 MG TABLET PO SCH (13:11)
[2019-10-24] MEDS: METHYLPREDNISOLONE SOD SUCC 40 MG/ML VIAL IV SCH ×2 (13:13→21:17)
[2019-10-24] MEDS: METHADONE HCL 10MG TABLET PO SCH (13:13)
[2019-10-24] MEDS: ENOXAPARIN 40MG/0.4ML SYR SUBCUT SCH (13:14)
[2019-10-24 17:37] LABS: CLARITY URINE CLEAR (CLEAR); COLOR URINE YELLOW (YELLOW); KETONES URINE NEGATIVE (NEGATIVE); LEUKOCYTE ESTERASE URINE NEGATIVE (NEGATIVE); NITRITE URINE NEGATIVE (NEGATIVE); OCCULT BLOOD URINE NEGATIVE (NEGATIVE); PH URINE 6.5 (4.5-8.0); PROTEIN URINE NEGATIVE (NEGATIVE); SPECIFIC GRAVITY URINE 1.025 (1.005-1.030)
[2019-10-24 17:49] LABS: *AMPHETAMINES SCREEN URINE NEGATIVE (NEGATIVE); *BARBITURATES SCREEN URINE NEGATIVE (NEGATIVE)
[2019-10-24 17:50] LABS: *BENZODIAZEPINES SCREEN URINE NEGATIVE (NEGATIVE); *COCAINE SCREEN URINE PRESUMTIVE POSITIVE (NEGATIVE); CANNABINOID URINE SCREEN NEGATIVE (NEGATIVE); METHADONE URINE SCREEN PRESUMTIVE POSITIVE (NEGATIVE); OPIATES URINE SCREEN PRESUMTIVE POSITIVE (NEGATIVE); PHENCYCLIDINE URINE SCREEN NEGATIVE (NEGATIVE)
[2019-10-24] MEDS: FLUTICASONE PROPIONATE 50MCG/SPRAY BOTTLE BOTHNSTRLS SCH (21:16)
[2019-10-24] MEDS: GUAIFENESIN 600MG ER TABLET PO SCH (21:17)
[2019-10-25] VITALS (11 sets, daily range): BP systolic 96–138; BP diastolic 7–85
[2019-10-25] MEDS: IPRATROPIUM/ALBUTEROL 0.5-3(2.5)MG/3ML NEB HHN SCH ×6 (00:50→20:20)
[2019-10-25] MEDS: METHYLPREDNISOLONE SOD SUCC 40 MG/ML VIAL IV SCH ×3 (04:59→20:00)
[2019-10-25] MEDS: LOSARTAN POTASSIUM 50 MG TABLET PO SCH (08:10)
[2019-10-25] MEDS: GUAIFENESIN 600MG ER TABLET PO SCH ×2 (08:10→20:55)
[2019-10-25] MEDS: ASPIRIN 81MG TABLET PO SCH (08:10)
[2019-10-25] MEDS: METHADONE HCL 10MG TABLET PO SCH (08:11)
[2019-10-25] MEDS: FLUTICASONE PROPIONATE 50MCG/SPRAY BOTTLE BOTHNSTRLS SCH ×2 (08:14→20:55)
[2019-10-25] MEDS ORDERED: DIATR MEGLU/DIATRIZOATE SOLN 30ML PO NR (11:30)
[2019-10-25] MEDS: ENOXAPARIN 40MG/0.4ML SYR SUBCUT SCH (15:55)
[2019-10-26] VITALS (8 sets, daily range): BP systolic 107–143; BP diastolic 74–99
[2019-10-26] MEDS: IPRATROPIUM/ALBUTEROL 0.5-3(2.5)MG/3ML NEB HHN SCH ×6 (00:07→21:03)
[2019-10-26] MEDS: METHYLPREDNISOLONE SOD SUCC 40 MG/ML VIAL IV SCH ×3 (04:00→21:03)
[2019-10-26 07:44] LABS: BASOPHILS % 0.7 % (0.0-2.0); EOSINOPHILS % 0.4 % (0.0-5.0); HEMATOCRIT. 41.6 % (42.0-52.0); HEMOGLOBIN. 13.4 g/dL (14.0-18.0); MEAN CORPUSCULAR HEMOGLOBIN 26.7 pg (28.0-32.0); MEAN CORPUSCULAR VOLUME 82.7 fL (80.0-94.0); MEAN PLATELET VOLUME 8.3 fl (7.4-10.4); MONOCYTES % 7.5 % (2.0-8.0); NEUTROPHILS % 64.4 % (40.0-76.0); PLATELET 164 x1000/uL (130-400); RED BLOOD CELL COUNT 5.03 mill/uL (4.7-6.1); RED CELL DISTRIBUTION WIDTH 16.2 % (11.6-14.6)
[2019-10-26 08:03] LABS: CHLORIDE 105 mEq/L (98-107)
[2019-10-26] MEDS ORDERED: LIDOCAINE HCL 1% 20ML VIAL (Pyxis) INJ ONE (08:12)
[2019-10-26] MEDS ORDERED: SODIUM BICARBONATE 4% (2.4MEQ) 5ML VIAL IV ONE (08:13)
[2019-10-26] MEDS: FLUTICASONE PROPIONATE 50MCG/SPRAY BOTTLE BOTHNSTRLS SCH ×2 (09:00→21:03)
[2019-10-26] MEDS: METHADONE HCL 10MG TABLET PO SCH (12:38)
[2019-10-26] MEDS: ASPIRIN 81MG TABLET PO SCH (12:38)
[2019-10-26] MEDS: LOSARTAN POTASSIUM 50 MG TABLET PO SCH (12:38)
[2019-10-26] MEDS: GUAIFENESIN 600MG ER TABLET PO SCH ×2 (12:38→21:10)
[2019-10-26] MEDS ORDERED: IOHEXOL-300 100 ML BOTTLE ONE (15:43)
[2019-10-26] MEDS: ENOXAPARIN 40MG/0.4ML SYR SUBCUT SCH (15:57)
[2019-10-26] MEDS: TAMSULOSIN HCL 0.4MG SR CAPSULE PO SCH (17:43)
[2019-10-27] MEDS: IPRATROPIUM/ALBUTEROL 0.5-3(2.5)MG/3ML NEB HHN SCH ×4 (05:01→12:42)
[2019-10-27] MEDS: METHYLPREDNISOLONE SOD SUCC 40 MG/ML VIAL IV SCH (06:12)
[2019-10-27 08:00] VITALS: BP 118/75
[2019-10-27] MEDS: FLUTICASONE PROPIONATE 50MCG/SPRAY BOTTLE BOTHNSTRLS SCH (08:18)
[2019-10-27 08:20] VITALS: BP 145/95
[2019-10-27] MEDS: METHADONE HCL 10MG TABLET PO SCH (08:20)
[2019-10-27] MEDS: LOSARTAN POTASSIUM 50 MG TABLET PO SCH (08:20)
[2019-10-27] MEDS: GUAIFENESIN 600MG ER TABLET PO SCH (08:21)
[2019-10-27] MEDS: TAMSULOSIN HCL 0.4MG SR CAPSULE PO SCH (08:21)
[2019-10-27] MEDS: ASPIRIN 81MG TABLET PO SCH (08:21)
[2019-10-27 10:00] VITALS: BP 133/85
[2019-10-27] MEDS ORDERED: LEVOFLOXACIN 250MG TABLET PO SCH (11:30)
[2019-10-27] MEDS ORDERED: GUAI600T26 MT (11:38)
[2019-10-27] MEDS ORDERED: ALBU18HF2 IH (11:38)
[2019-10-27] MEDS ORDERED: LEVO500T2 MT (11:38)
[2019-10-27] MEDS ORDERED: P20 MT (11:38)
[2019-10-27 12:00] VITALS: BP 125/85
[2019-10-27 12:28] VITALS: BP 145/95
[2019-10-27 14:00] VITALS: BP 122/84
[2019-10-27] MEDS ORDERED: ACETYLCYSTEINE 100MG/ML 10% VIAL 4ML INH SCH (14:00)
[2019-10-27] MEDS ORDERED: PREDNISONE 20MG TABLET PO SCH (18:00)
== END 2019-10-27 14:45 | disposition home or self-care (01) | DRG 144 ==
LOC: ER 03:16 → 5EST 04:38 → ENRESERV 08:27
PROVIDERS: ADMIT Internal Medicine; ATTEND Internal Medicine
PROC: 5A09357 Assistance with Respiratory Ventilation, Less than 24 Consecutive Hours, Continuous Positive Airway Pressure (ICD-10-PCS; 2019-10-24)
PROC: 5A09357 Assistance with Respiratory Ventilation, Less than 24 Consecutive Hours, Continuous Positive Airway Pressure (ICD-10-PCS; 2019-10-25)
PROC: 02HV33Z Insertion of Infusion Device into Superior Vena Cava, Percutaneous Approach (ICD-10-PCS; principal; 2019-10-26)
PROC: B548ZZA Ultrasonography of Superior Vena Cava, Guidance (ICD-10-PCS; 2019-10-26)
PROC: B5181ZA Fluoroscopy of Superior Vena Cava using Low Osmolar Contrast, Guidance (ICD-10-PCS; 2019-10-26)
DX: J68.0 Bronchitis and pneumonitis due to chemicals, gases, fumes and vapors (principal); J96.00 Acute respiratory failure, unspecified whether with hypoxia or hypercapnia; I11.0 Hypertensive heart disease with heart failure; I50.22 Chronic systolic (congestive) heart failure; F14.90 Cocaine use, unspecified, uncomplicated; F11.20 Opioid dependence, uncomplicated; B19.20 Unspecified viral hepatitis C without hepatic coma; J06.9 Acute upper respiratory infection, unspecified; F17.210 Nicotine dependence, cigarettes, uncomplicated; Z79.899 Other long term (current) drug therapy; Z88.8 Allergy status to other drugs, medicaments and biological substances; Z79.82 Long term (current) use of aspirin; Z71.51 Drug abuse counseling and surveillance of drug abuser
CPT/HCPCS: 36415; 36573; 71045; 74178; 80048; 80053; 80305; 81003; 83880; 85025; 85027; 93005; 94640; 99291; C1725; J1650; J2920; J2930; J3475; J3490; J7611; J7620; Q9963; Q9967

== ENCOUNTER 2020-02-06 05:57 | Inpatient (IN) | payer OTHER ==
[~2020-02-06] VITALS: Ht 182.9 cm; Wt 69.4 kg
[2020-02-06] VITALS (40 sets, daily range): BP systolic 103–158; BP diastolic 64–111
[~2020-02-06 05:57] MED LIST changes: +ALBU18HF2 IH; +BENZ-16 MT; +FLUT1DIS3 INH; +GUAI600T26 MT; +LEVO500T2 MT; +MED4 MT; +METH10OR11 PO
[2020-02-06] MEDS ORDERED: SODIUM CHLORIDE 0.9% 500 ML IV ONE (06:07)
[2020-02-06] MEDS ORDERED: ACETAMINOPHEN 650MG SUPP PR STA (06:07)
[2020-02-06 07:39] LABS: HEMATOCRIT. 44.3 % (42.0-52.0); HEMOGLOBIN. 14.4 g/dL (14.0-18.0); MEAN CORPUSCULAR HEMOGLOBIN 27.5 pg (28.0-32.0); MEAN CORPUSCULAR VOLUME 84.3 fL (80.0-94.0); MEAN PLATELET VOLUME 8.3 fl (7.4-10.4); PLATELET 102 x1000/uL (130-400); RED BLOOD CELL COUNT 5.26 mill/uL (4.7-6.1); RED CELL DISTRIBUTION WIDTH 15.9 % (11.6-14.6)
[2020-02-06 07:46] LABS: CHLORIDE 101 mEq/L (98-107)
[2020-02-06 07:47] LABS: D-DIMER 0.52 mg/L FEU (<0.50); PROTHROMBIN TIME 10.7 sec (9.6-11.0)
[2020-02-06 07:50] LABS: ETHANOL BLOOD < 10 mg/dL
[2020-02-06 07:51] LABS: C REACTIVE PROTEIN QUANT 4.9 mg/L (0.0-3.0)
[2020-02-06 07:54] LABS: CREATINE KINASE 342 IU/L (39-308)
[2020-02-06] MEDS ORDERED: LEVOFLOXACIN 500MG PREMIX 100 ML IV ONE (08:00)
[2020-02-06 08:10] LABS: PLATELET ESTIMATE DECREASED
[2020-02-06 09:04] LABS: BG BASE EXCESS 2.9 mmol/L (-2.0-2.0); BG CARBOXYHEMOGLOBIN 2.2 % (0.5-1.5); BG DEOXYHEMOGLOBIN 0.1 % (0.0-5.0); BG FRACTION INSPIRED OXYGEN 99.9; BG HCO3 ACT 29.1 mmol/L (22.0-26.0); BG METHEMOGLOBIN 0.3 % (0.0-1.5); BG OXYGEN SATURATION 99.9 % (92.0-98.5); BG OXYHEMOGLOBIN 97.4 % (94.0-97.0); BG PCO2 51.2 mmHg (35.0-45.0); BG PH 7.373 (7.350-7.450); BG PO2 245.6 mmHg (75.0-100.0); BG SAMPLE SITE RIGHT RADIAL; BG TOTAL HEMOGLOBIN 13.3 g/dL (12.0-18.0); BG VENT MODE MASK - NRB
[2020-02-06] MEDS ORDERED: CLONIDINE 0.1MG TABLET PO PRN (09:30)
[2020-02-06] MEDS ORDERED: METOCLOPRAMIDE HCL 10MG/2ML VIAL IV PRN (09:30)
[2020-02-06] MEDS: AZITHROMYCIN 500 MG TABLET PO SCH ×2 (10:00→11:19)
[2020-02-06] MEDS: LOSARTAN POTASSIUM 25 MG TABLET PO SCH (10:00)
[2020-02-06] MEDS: CEFTRIAXONE 1 G PREMIX 50 ML IV SCH (11:19)
[2020-02-06] MEDS: ENOXAPARIN 40MG/0.4ML SYR SUBCUT SCH (11:19)
[2020-02-06] MEDS ORDERED: LIDOCAINE HCL/PF 1% 2ML VIAL ONE (11:42)
[2020-02-06 13:30] LABS: CLARITY URINE CLEAR (CLEAR); COLOR URINE YELLOW (YELLOW); KETONES URINE NEGATIVE (NEGATIVE); LEUKOCYTE ESTERASE URINE NEGATIVE (NEGATIVE); NITRITE URINE NEGATIVE (NEGATIVE); OCCULT BLOOD URINE NEGATIVE (NEGATIVE); PH URINE 7.5 (4.5-8.0); PROTEIN URINE NEGATIVE (NEGATIVE); SPECIFIC GRAVITY URINE 1.019 (1.005-1.030)
[2020-02-06 13:51] LABS: *AMPHETAMINES SCREEN URINE NEGATIVE (NEGATIVE); *BARBITURATES SCREEN URINE NEGATIVE (NEGATIVE); *BENZODIAZEPINES SCREEN URINE NEGATIVE (NEGATIVE)
[2020-02-06 13:52] LABS: *COCAINE SCREEN URINE PRESUMTIVE POSITIVE (NEGATIVE); CANNABINOID URINE SCREEN NEGATIVE (NEGATIVE); METHADONE URINE SCREEN PRESUMTIVE POSITIVE (NEGATIVE); OPIATES URINE SCREEN NEGATIVE (NEGATIVE); PHENCYCLIDINE URINE SCREEN NEGATIVE (NEGATIVE)
[2020-02-06] MEDS: METHADONE HCL 10MG TABLET PO SCH (14:44)
[2020-02-06] MEDS ORDERED: METHYLPREDNISOLONE SOD SUCC 40 MG/ML VIAL IV SCH (15:00)
[2020-02-06] MEDS ORDERED: ALBUTEROL 6.7GM HFA INHALER ORI SCH (19:00)
[2020-02-06] MEDS: METHYLPREDNISOLONE SOD SUCC 40 MG/ML VIAL IV SCH (22:40)
[2020-02-07] VITALS (41 sets, daily range): BP systolic 116–146; BP diastolic 63–98
[2020-02-07 06:43] LABS: HEMATOCRIT. 42.7 % (42.0-52.0); HEMOGLOBIN. 13.6 g/dL (14.0-18.0); MEAN CORPUSCULAR HEMOGLOBIN 26.9 pg (28.0-32.0); MEAN CORPUSCULAR VOLUME 84.4 fL (80.0-94.0); MEAN PLATELET VOLUME 8.5 fl (7.4-10.4); PLATELET 133 x1000/uL (130-400); RED BLOOD CELL COUNT 5.06 mill/uL (4.7-6.1); RED CELL DISTRIBUTION WIDTH 15.6 % (11.6-14.6)
[2020-02-07] MEDS: METHYLPREDNISOLONE SOD SUCC 40 MG/ML VIAL IV SCH ×3 (06:44→22:43)
[2020-02-07 06:53] LABS: CHLORIDE 102 mEq/L (98-107)
[2020-02-07] MEDS: AZITHROMYCIN 500 MG TABLET PO SCH (09:46)
[2020-02-07] MEDS: METHADONE HCL 10MG TABLET PO SCH (09:54)
[2020-02-07] MEDS: LOSARTAN POTASSIUM 25 MG TABLET PO SCH (09:54)
[2020-02-07] MEDS: ENOXAPARIN 40MG/0.4ML SYR SUBCUT SCH (09:54)
[2020-02-07 10:19] LABS: PLATELET ESTIMATE NORMAL
[2020-02-07] MEDS: CEFTRIAXONE 1 G PREMIX 50 ML IV SCH (11:07)
[2020-02-07 12:22] LABS: BG BASE EXCESS 4.3 mmol/L (-2.0-2.0); BG CARBOXYHEMOGLOBIN 0.3 % (0.5-1.5); BG DEOXYHEMOGLOBIN 0.4 % (0.0-5.0); BG FRACTION INSPIRED OXYGEN 100; BG HCO3 ACT 32.1 mmol/L (22.0-26.0); BG METHEMOGLOBIN 0.3 % (0.0-1.5); BG OXYGEN SATURATION 99.6 % (92.0-98.5); BG PCO2 61.8 mmHg (35.0-45.0); BG PH 7.333 (7.350-7.450); BG PO2 249.2 mmHg (75.0-100.0); BG SAMPLE SITE RIGHT RADIAL; BG TOTAL HEMOGLOBIN 14.5 g/dL (12.0-18.0); BG VENT MODE MASK - NRB
[2020-02-08] VITALS (28 sets, daily range): BP systolic 71–135; BP diastolic 41–92
[2020-02-08 01:12] LABS: BG BILEVEL POS AIRWAY PRESSURE 15/5; BG CARBOXYHEMOGLOBIN 0.3 % (0.5-1.5); BG DEOXYHEMOGLOBIN 2.9 % (0.0-5.0); BG FRACTION INSPIRED OXYGEN 60; BG HCO3 ACT 33.4 mmol/L (22.0-26.0); BG METHEMOGLOBIN 0.3 % (0.0-1.5); BG OXYGEN SATURATION 97.1 % (92.0-98.5); BG OXYHEMOGLOBIN 96.5 % (94.0-97.0); BG PH 7.364 (7.350-7.450); BG PO2 92.2 mmHg (75.0-100.0); BG SAMPLE SITE RIGHT RADIAL; BG TOTAL HEMOGLOBIN 14.8 g/dL (12.0-18.0); BG VENT MODE MASK - BIPAP
[2020-02-08] MEDS: ALBUTEROL (0.083%) 2.5MG/3ML NEB HHN SCH ×4 (01:42→21:48)
[2020-02-08] MEDS: METHYLPREDNISOLONE SOD SUCC 40 MG/ML VIAL IV SCH ×3 (05:37→21:59)
[2020-02-08] MEDS ORDERED: ALBUTEROL (0.083%) 2.5MG/3ML NEB HHN SCH (06:00)
[2020-02-08 06:08] LABS: BASOPHILS % 0.1 % (0.0-2.0); HEMATOCRIT. 43.7 % (42.0-52.0); HEMOGLOBIN. 14.3 g/dL (14.0-18.0); LYMPHOCYTES % 8.4 % (20.0-50.0); MEAN CORPUSCULAR HEMOGLOBIN 27.4 pg (28.0-32.0); MEAN CORPUSCULAR VOLUME 83.7 fL (80.0-94.0); MEAN PLATELET VOLUME 8.3 fl (7.4-10.4); NEUTROPHILS % 87.5 % (40.0-76.0); PLATELET 147 x1000/uL (130-400); RED BLOOD CELL COUNT 5.22 mill/uL (4.7-6.1); RED CELL DISTRIBUTION WIDTH 15.6 % (11.6-14.6)
[2020-02-08 06:20] LABS: CHLORIDE 101 mEq/L (98-107)
[2020-02-08] MEDS: AZITHROMYCIN 500 MG TABLET PO SCH (09:59)
[2020-02-08] MEDS: ENOXAPARIN 40MG/0.4ML SYR SUBCUT SCH (09:59)
[2020-02-08] MEDS: CEFTRIAXONE 1 G PREMIX 50 ML IV SCH (09:59)
[2020-02-08] MEDS: METHADONE HCL 10MG TABLET PO SCH (10:00)
[2020-02-08] MEDS: LOSARTAN POTASSIUM 25 MG TABLET PO SCH (10:00)
[2020-02-09] VITALS (12 sets, daily range): BP systolic 96–131; BP diastolic 50–80
[2020-02-09] MEDS: ACETAMINOPHEN 325MG TABLET PO PRN (00:39)
[2020-02-09] MEDS: ALBUTEROL (0.083%) 2.5MG/3ML NEB HHN SCH ×5 (01:09→20:32)
[2020-02-09] MEDS: METHYLPREDNISOLONE SOD SUCC 40 MG/ML VIAL IV SCH ×2 (05:41→14:40)
[2020-02-09] MEDS: MORPHINE SULFATE 2 MG/ML CPJ (NOT FOR IM USE) IV PRN ×2 (06:16→23:44)
[2020-02-09 07:24] LABS: BG BASE EXCESS -0.5 mmol/L (-2.0-2.0); BG CARBOXYHEMOGLOBIN 0.3 % (0.5-1.5); BG DEOXYHEMOGLOBIN 7.7 % (0.0-5.0); BG FRACTION INSPIRED OXYGEN 44; BG HCO3 ACT 23.4 mmol/L (22.0-26.0); BG METHEMOGLOBIN 0.2 % (0.0-1.5); BG OXYGEN SATURATION 92.3 % (92.0-98.5); BG OXYHEMOGLOBIN 91.8 % (94.0-97.0); BG PCO2 36.2 mmHg (35.0-45.0); BG PH 7.428 (7.350-7.450); BG PO2 63.2 mmHg (75.0-100.0); BG SAMPLE SITE RIGHT RADIAL; BG TOTAL HEMOGLOBIN 13.6 g/dL (12.0-18.0); BG VENT MODE NASAL CANNULA
[2020-02-09] MEDS: ENOXAPARIN 40MG/0.4ML SYR SUBCUT SCH (08:12)
[2020-02-09] MEDS: LOSARTAN POTASSIUM 25 MG TABLET PO SCH ×2 (08:13→08:19)
[2020-02-09] MEDS: AZITHROMYCIN 500 MG TABLET PO SCH (08:13)
[2020-02-09] MEDS: METHADONE HCL 10MG TABLET PO SCH (08:14)
[2020-02-09] MEDS: CEFTRIAXONE 1 G PREMIX 50 ML IV SCH (10:53)
[2020-02-09] MEDS ORDERED: ALBU18HF2 IH (11:56)
[2020-02-09] MEDS ORDERED: FLUT1DIS3 INH (11:56)
[2020-02-09] MEDS ORDERED: CARV12.545 MT (11:56)
[2020-02-09] MEDS ORDERED: LOSA25TA3 PO (11:56)
[2020-02-09] MEDS ORDERED: MED4 MT (11:56)
[2020-02-09] MEDS ORDERED: IPRA3AMP9 NEB (11:56)
[2020-02-10] VITALS (10 sets, daily range): BP systolic 100–134; BP diastolic 60–82
[2020-02-10] MEDS: ALBUTEROL (0.083%) 2.5MG/3ML NEB HHN SCH ×5 (02:07→23:44)
[2020-02-10] MEDS: AZITHROMYCIN 500 MG TABLET PO SCH (08:46)
[2020-02-10] MEDS: LOSARTAN POTASSIUM 25 MG TABLET PO SCH (08:46)
[2020-02-10] MEDS: METHADONE HCL 10MG TABLET PO SCH (08:49)
[2020-02-10] MEDS: ENOXAPARIN 40MG/0.4ML SYR SUBCUT SCH (08:50)
[2020-02-10] MEDS ORDERED: PREDNISONE 20MG TABLET PO SCH (09:00)
[2020-02-10] MEDS: CEFTRIAXONE 1 G PREMIX 50 ML IV SCH (10:36)
[2020-02-10 11:52] LABS: BG BASE EXCESS -1.3 mmol/L (-2.0-2.0); BG CARBOXYHEMOGLOBIN 0.8 % (0.5-1.5); BG DEOXYHEMOGLOBIN 13.3 % (0.0-5.0); BG FRACTION INSPIRED OXYGEN 21; BG METHEMOGLOBIN 0.3 % (0.0-1.5); BG OXYGEN SATURATION 86.6 % (92.0-98.5); BG OXYHEMOGLOBIN 85.6 % (94.0-97.0); BG PH 7.441 (7.350-7.450); BG PO2 49.3 mmHg (75.0-100.0); BG SAMPLE SITE RIGHT RADIAL; BG TOTAL HEMOGLOBIN 15.4 g/dL (12.0-18.0); BG VENT MODE ROOM AIR
[2020-02-10] MEDS: ACETAMINOPHEN 325MG TABLET PO PRN (14:36)
[2020-02-11] VITALS: BP 113/66
[2020-02-11 00:16] VITALS: BP 113/58
== END 2020-02-11 01:30 | disposition home or self-care (01) | DRG 816 ==
LOC: ER 06:10 → MICUSO 06:35 → EDBEDREQ 06:41 → EDBEDREQTM 06:41 → ENRESERV 07:38 → 5EST 02-08 00:15
PROVIDERS: ADMIT Internal Medicine; ATTEND Internal Medicine
PROC: 5A09357 Assistance with Respiratory Ventilation, Less than 24 Consecutive Hours, Continuous Positive Airway Pressure (ICD-10-PCS; principal; 2020-02-07)
DX: T40.5X1A Poisoning by cocaine, accidental (unintentional), initial encounter (principal); J96.21 Acute and chronic respiratory failure with hypoxia; A41.9 Sepsis, unspecified organism; G92 Toxic encephalopathy; J18.9 Pneumonia, unspecified organism; I11.0 Hypertensive heart disease with heart failure; E87.2 Acidosis; D69.6 Thrombocytopenia, unspecified; I50.22 Chronic systolic (congestive) heart failure; F11.20 Opioid dependence, uncomplicated; J44.1 Chronic obstructive pulmonary disease with (acute) exacerbation; I42.9 Cardiomyopathy, unspecified; J68.0 Bronchitis and pneumonitis due to chemicals, gases, fumes and vapors; F17.200 Nicotine dependence, unspecified, uncomplicated; J44.0 Chronic obstructive pulmonary disease with (acute) lower respiratory infection; B19.20 Unspecified viral hepatitis C without hepatic coma; D72.810 Lymphocytopenia; F14.10 Cocaine abuse, uncomplicated; Z20.828 Contact with and (suspected) exposure to other viral communicable diseases; Z88.8 Allergy status to other drugs, medicaments and biological substances; Z79.2 Long term (current) use of antibiotics; Z79.82 Long term (current) use of aspirin; Z79.899 Other long term (current) drug therapy; Y92.89 Other specified places as the place of occurrence of the external cause; Z71.51 Drug abuse counseling and surveillance of drug abuser; Z99.81 Dependence on supplemental oxygen
CPT/HCPCS: 36415; 36600; 71045; 80048; 80053; 80305; 80320; 81003; 82375; 82550; 82728; 82805; 83605; 83615; 83880; 84145; 84484; 85025; 85379; 85384; 86140; 87635; 87804; 93005; 99291; J0696; J1650; J2270; J2765; J2920; J3490; J7040; J7512; G0480

== ENCOUNTER 2020-03-01 15:59 | Emergency (ER) | payer OTHER ==
[~2020-03-01] VITALS: Ht 190.5 cm; Wt 68.0 kg
[~2020-03-01 15:59] MED LIST changes: +CARV12.545 MT; +IPRA3AMP9 NEB; -LEVO500T2 MT; -LISI40TA4 PO; +LOSA25TA3 PO
[2020-03-01] MEDS ORDERED: CLINDAMYCIN 600 MG in DEXTROSE 5% WATER 50 ML IV ONE (17:45)
[2020-03-01] MEDS ORDERED: HYDROCODONE/ACETAMINOPHEN 5/325MG TABLET PO ONE (17:45)
[2020-03-01] MEDS ORDERED: CLINDAMYCIN 600MG PREMIX 50 ML IV SCH (18:00)
[2020-03-01 19:12] LABS: BASOPHILS % 1.1 % (0.0-2.0); EOSINOPHILS % 2.5 % (0.0-5.0); HEMATOCRIT. 38.1 % (42.0-52.0); HEMOGLOBIN. 12.1 g/dL (14.0-18.0); LYMPHOCYTES % 30.5 % (20.0-50.0); MEAN CORPUSCULAR HEMOGLOBIN 26.8 pg (28.0-32.0); MEAN CORPUSCULAR VOLUME 84.1 fL (80.0-94.0); MEAN PLATELET VOLUME 7.5 fl (7.4-10.4); MONOCYTES % 11.2 % (2.0-8.0); NEUTROPHILS % 54.7 % (40.0-76.0); PLATELET 178 x1000/uL (130-400); RED BLOOD CELL COUNT 4.53 mill/uL (4.7-6.1); RED CELL DISTRIBUTION WIDTH 15.5 % (11.6-14.6)
[2020-03-01 19:27] LABS: CHLORIDE 101 mEq/L (98-107)
[2020-03-01 22:21] VITALS: BP 133/74
[2020-03-01] MEDS ORDERED: ACETAMINOPHEN 325MG TABLET PO ONE (22:30)
== END 2020-03-01 23:02 ==
LOC: ER 15:59
DX: L03.115 Cellulitis of right lower limb (principal); I10 Essential (primary) hypertension; I25.2 Old myocardial infarction; J44.9 Chronic obstructive pulmonary disease, unspecified; Z88.6 Allergy status to analgesic agent
CPT/HCPCS: 36415; 71045; 80053; 83880; 84484; 85025; 93005; 93971; 96365; 99285; J3490; J7060

== ENCOUNTER 2020-03-15 01:22 | Emergency (ER) | payer OTHER ==
[~2020-03-15] VITALS: Ht 182.9 cm; Wt 77.0 kg
[2020-03-15] MEDS ORDERED: LOSARTAN POTASSIUM 25 MG TABLET PO ONE (02:00)
[2020-03-15 02:24] VITALS: BP 142/79
== END 2020-03-15 02:26 | disposition home or self-care (01) ==
LOC: ER 01:22
DX: Z76.0 Encounter for issue of repeat prescription (principal); J44.9 Chronic obstructive pulmonary disease, unspecified; I10 Essential (primary) hypertension; Z85.9 Personal history of malignant neoplasm, unspecified; Z79.82 Long term (current) use of aspirin; Z98.890 Other specified postprocedural states
CPT/HCPCS: 99283

== ENCOUNTER 2021-04-04 01:10 | Emergency (ER) | payer MEDICARE, OTHER ==
[~2021-04-04] VITALS: Ht 185.4 cm; Wt 100.0 kg
[~2021-04-04 01:10] MED LIST changes: +OXYC-582 PO; -OXYC30TA89 PO
[2021-04-04] MEDS ORDERED: METHYLPREDNISOLONE SOD SUCC 125 MG/2 ML VIAL IV STA (01:47)
[2021-04-04] MEDS ORDERED: IPRATROPIUM BROMIDE (0.02%) 0.5MG/2.5ML NEB HHN STA (01:47)
[2021-04-04] MEDS: ALBUTEROL (0.083%) 2.5MG/3ML NEB HHN SCH ×3 (02:00→02:52)
[2021-04-04] MEDS ORDERED: MAGNESIUM 2 G PREMIX 50 ML IV ONE (02:00)
[2021-04-04 03:35] LABS: BASOPHILS % 1.1 % (0.0-2.0); HEMATOCRIT. 41.3 % (42.0-52.0); HEMOGLOBIN. 13.1 g/dL (14.0-18.0); LYMPHOCYTES % 39.6 % (20.0-50.0); MEAN CORPUSCULAR HEMOGLOBIN 27.4 pg (28.0-32.0); MEAN CORPUSCULAR VOLUME 86.2 fL (80.0-94.0); MEAN PLATELET VOLUME 8.3 fl (7.4-10.4); MONOCYTES % 11.3 % (2.0-8.0); PLATELET 157 x1000/uL (130-400); RED BLOOD CELL COUNT 4.79 mill/uL (4.7-6.1); RED CELL DISTRIBUTION WIDTH 15.7 % (11.6-14.6)
[2021-04-04 03:40] LABS: CHLORIDE 104 mEq/L (98-107)
[2021-04-04 04:22] VITALS: BP 118/79
== END 2021-04-04 04:36 | disposition left against medical advice (07) ==
LOC: ER 01:10 → CANBEDREQ 09:11
DX: J44.1 Chronic obstructive pulmonary disease with (acute) exacerbation (principal); I10 Essential (primary) hypertension; F17.210 Nicotine dependence, cigarettes, uncomplicated; Z85.9 Personal history of malignant neoplasm, unspecified; Z88.6 Allergy status to analgesic agent; Z79.82 Long term (current) use of aspirin; F12.10 Cannabis abuse, uncomplicated
CPT/HCPCS: 36415; 71045; 80053; 83605; 83880; 84484; 85025; 93005; 94640; 96365; 96375; 99285; J2930; J3475; Z7610

== ENCOUNTER 2021-08-13 04:07 | Emergency (ER) | payer MEDICARE, OTHER ==
[~2021-08-13] VITALS: Ht 182.9 cm; Wt 90.0 kg
[~2021-08-13 04:07] MED LIST changes: -MET5 MT; +METH-817 MT
[2021-08-13] MEDS ORDERED: ALBUTEROL (0.083%) 2.5MG/3ML NEB HHN STA (04:56)
[2021-08-13 05:22] LABS: BASOPHILS % 1.9 % (0.0-2.0); EOSINOPHILS % 4.6 % (0.0-5.0); HEMATOCRIT. 40.2 % (42.0-52.0); HEMOGLOBIN. 12.9 g/dL (14.0-18.0); LYMPHOCYTES % 36.1 % (20.0-50.0); MEAN CORPUSCULAR HEMOGLOBIN 27.1 pg (28.0-32.0); MEAN CORPUSCULAR VOLUME 84.2 fL (80.0-94.0); MEAN PLATELET VOLUME 8.1 fl (7.4-10.4); MONOCYTES % 12.6 % (2.0-8.0); NEUTROPHILS % 44.8 % (40.0-76.0); PLATELET 153 x1000/uL (130-400); RED BLOOD CELL COUNT 4.78 mill/uL (4.7-6.1); RED CELL DISTRIBUTION WIDTH 15.1 % (11.6-14.6)
[2021-08-13 05:27] LABS: CHLORIDE 106 mEq/L (98-107)
[2021-08-13 05:30] LABS: ETHANOL BLOOD < 10 mg/dL
[2021-08-13 05:47] LABS: PARTIAL THROMBOPLASTIN TIME 23.4 sec (23.4-31.0); PROTHROMBIN TIME 10.8 sec (9.6-11.0)
[2021-08-13 06:50] LABS: *AMPHETAMINES SCREEN URINE NEGATIVE (NEGATIVE); *BARBITURATES SCREEN URINE NEGATIVE (NEGATIVE); *BENZODIAZEPINES SCREEN URINE NEGATIVE (NEGATIVE); *COCAINE SCREEN URINE PRESUMTIVE POSITIVE (NEGATIVE); CANNABINOID URINE SCREEN NEGATIVE (NEGATIVE); METHADONE URINE SCREEN PRESUMTIVE POSITIVE (NEGATIVE); OPIATES URINE SCREEN PRESUMTIVE POSITIVE (NEGATIVE)
[2021-08-13 06:51] LABS: PHENCYCLIDINE URINE SCREEN NEGATIVE (NEGATIVE)
[2021-08-13 15:40] VITALS: BP 150/92
[2021-08-13] MEDS ORDERED: ALBU18HF2 IH (15:56)
[2021-08-13] MEDS ORDERED: ALBUTEROL (0.5%) 2.5MG/0.5ML NEB HHN SCH (16:00)
== END 2021-08-13 16:10 | disposition left against medical advice (07) ==
LOC: ER 04:19 → CANBEDREQ 16:17
DX: J96.01 Acute respiratory failure with hypoxia (principal); F14.90 Cocaine use, unspecified, uncomplicated; J45.909 Unspecified asthma, uncomplicated; J44.9 Chronic obstructive pulmonary disease, unspecified; I10 Essential (primary) hypertension; F17.210 Nicotine dependence, cigarettes, uncomplicated; Z71.6 Tobacco abuse counseling; Z88.6 Allergy status to analgesic agent; Z79.82 Long term (current) use of aspirin
CPT/HCPCS: 36415; 71045; 80053; 80305; 80307; 80320; 80329; 83880; 84484; 85025; 85610; 85730; 93005; 94640; 99291; Z7610; G0480

== ENCOUNTER 2022-04-09 05:14 | Emergency (ER) | payer MEDICARE, OTHER ==
[~2022-04-09] VITALS: Ht 175.3 cm; Wt 78.0 kg
[2022-04-09 08:44] LABS: HEMATOCRIT. 39.6 % (42.0-52.0); HEMOGLOBIN. 12.4 g/dL (14.0-18.0); MEAN CORPUSCULAR HEMOGLOBIN 27.4 pg (28.0-32.0); MEAN CORPUSCULAR VOLUME 87.8 fL (80.0-94.0); MEAN PLATELET VOLUME 8.1 fl (7.4-10.4); PLATELET 143 x1000/uL (130-400); RED BLOOD CELL COUNT 4.52 mill/uL (4.7-6.1); RED CELL DISTRIBUTION WIDTH 15.1 % (11.6-14.6)
[2022-04-09] MEDS ORDERED: CEFTRIAXONE 1 G PREMIX 50 ML IV ONE (08:45)
[2022-04-09] MEDS ORDERED: MORPHINE SULFATE 4 MG/ML CPJ (NOT FOR IM USE) IV ONE (08:45)
[2022-04-09 09:10] LABS: CHLORIDE 103 mEq/L (98-107)
[2022-04-09] MEDS ORDERED: VANCOMYCIN 1.25GM PMX (XELLIA) 250 ML IV NR (10:00)
[2022-04-09 10:01] LABS: PLATELET ESTIMATE NORMAL
[2022-04-09] MEDS: VANCOMYCIN 1250MG in DEXTROSE 5% WATER 250ML IV NR ×2 (10:49→11:23)
[2022-04-09] MEDS ORDERED: CLONAZEPAM 1MG TABLET PO PRN (14:15)
[2022-04-09 15:43] LABS: *AMPHETAMINES SCREEN URINE NEGATIVE (NEGATIVE); *BARBITURATES SCREEN URINE NEGATIVE (NEGATIVE); *BENZODIAZEPINES SCREEN URINE NEGATIVE (NEGATIVE); *COCAINE SCREEN URINE PRESUMTIVE POSITIVE (NEGATIVE); CANNABINOID URINE SCREEN NEGATIVE (NEGATIVE); METHADONE URINE SCREEN PRESUMTIVE POSITIVE (NEGATIVE); OPIATES URINE SCREEN PRESUMTIVE POSITIVE (NEGATIVE); PHENCYCLIDINE URINE SCREEN NEGATIVE (NEGATIVE)
[2022-04-09] MEDS ORDERED: PIPERACILLIN/TAZOBACTAM 3.375 G in DEXTROSE 5% WATER 50 ML IV SCH (16:00)
[2022-04-09] MEDS ORDERED: CARVEDILOL 12.5MG TABLET PO SCH (17:00)
[2022-04-09 18:54] VITALS: BP 116/80
[2022-04-09] MEDS ORDERED: VANCOMYCIN 750 MG in DEXT 5% WATER 250 ML IV SCH (21:00)
[2022-04-09] MEDS ORDERED: VANCOMYCIN 750MG PREMIX 150 ML IV SCH (21:00)
[2022-04-10] MEDS ORDERED: LOSARTAN POTASSIUM 25 MG TABLET PO SCH (09:00)
[2022-04-10] MEDS ORDERED: ASPIRIN 81MG EC TABLET PO SCH (09:00)
== END 2022-04-09 20:10 | disposition left against medical advice (07) ==
LOC: ER 05:14 → CMPBEDREQ 22:27
DX: L03.115 Cellulitis of right lower limb (principal); J44.9 Chronic obstructive pulmonary disease, unspecified; I10 Essential (primary) hypertension; Z87.891 Personal history of nicotine dependence; F14.10 Cocaine abuse, uncomplicated; Z79.899 Other long term (current) drug therapy; Z20.822 Contact with and (suspected) exposure to COVID-19
CPT/HCPCS: 36415; 73590; 80053; 80305; 82962; 84145; 85025; 87040; 87426; 93971; 96365; 96367; 96375; 99285; C9803; J0696; J2270; J2543; J3370; J7060

== ENCOUNTER 2022-06-04 00:36 | Inpatient (IN) | payer MEDICARE, OTHER ==
[~2022-06-04] VITALS: Ht 182.9 cm; Wt 68.9 kg
[2022-06-04] MEDS ORDERED: VANCOMYCIN 1G PREMIX 200 ML IV ONE (01:30)
[2022-06-04] MEDS ORDERED: PIPERACILLIN/TAZ 3.375G PREMIX 50 ML IV ONE (01:30)
[2022-06-04 03:10] LABS: BASOPHILS % 2.6 % (0.0-2.0); EOSINOPHILS % 7.4 % (0.0-5.0); HEMATOCRIT. 35.1 % (42.0-52.0); HEMOGLOBIN. 11.2 g/dL (14.0-18.0); LYMPHOCYTES % 38.2 % (20.0-50.0); MEAN CORPUSCULAR HEMOGLOBIN 27.8 pg (28.0-32.0); MEAN PLATELET VOLUME 8.1 fl (7.4-10.4); MONOCYTES % 12.2 % (2.0-8.0); NEUTROPHILS % 39.6 % (40.0-76.0); PLATELET 141 x1000/uL (130-400); RED BLOOD CELL COUNT 4.04 mill/uL (4.7-6.1); RED CELL DISTRIBUTION WIDTH 15.7 % (11.6-14.6)
[2022-06-04 03:19] LABS: CHLORIDE 105 mEq/L (98-107)
[2022-06-04] MEDS ORDERED: CLONIDINE 0.1MG TABLET PO PRN (10:00)
[2022-06-04] MEDS ORDERED: ACETAMINOPHEN 325MG TABLET PO PRN (10:00)
[2022-06-04] MEDS ORDERED: IPRATROPIUM/ALBUTEROL 0.5-3(2.5)MG/3ML NEB HHN PRN (10:00)
[2022-06-04] MEDS ORDERED: ONDANSETRON HCL 4MG/2ML INJ IV PRN (10:00)
[2022-06-04] MEDS ORDERED: DIPHENHYDRAMINE 50MG/ML VIAL IV PRN (10:00)
[2022-06-04] MEDS ORDERED: PIPERACILLIN/TAZOBACTAM 3.375 G in DEXTROSE 5% WATER 50 ML IV SCH ×2 (10:15→22:00)
[2022-06-04] MEDS ORDERED: PIPERACILLIN/TAZ 3.375G PREMIX 50 ML IV NR (10:15)
[2022-06-04 12:27] VITALS: BP 119/75
[2022-06-04 12:30] VITALS: BP 119/75
[2022-06-04] MEDS ORDERED: LISI40TA13 PO (12:51)
[2022-06-04] MEDS: HYDROCODONE/ACETAMINOPHEN 5/325MG TABLET PO PRN ×2 (13:20→22:05)
[2022-06-04] MEDS ORDERED: NALOXONE HCL 0.4MG/ML VIAL IV PRN (13:30)
[2022-06-04] MEDS: PIPERACILLIN/TAZOBACTAM 3.375 G in DEXTROSE 5% WATER 50 ML IV SCH ×2 (14:13→21:57)
[2022-06-04 15:38] VITALS: BP 127/78
[2022-06-04] MEDS: VANCOMYCIN 1GM PMX (XELLIA) 200 ML IV SCH (17:02)
[2022-06-04 20:00] VITALS: BP 138/85
[2022-06-05] VITALS: BP 120/59
[2022-06-05 04:00] VITALS: BP 115/72
[2022-06-05] MEDS: VANCOMYCIN 1GM PMX (XELLIA) 200 ML IV SCH (05:14)
[2022-06-05] MEDS: PIPERACILLIN/TAZOBACTAM 3.375 G in DEXTROSE 5% WATER 50 ML IV SCH ×2 (06:07→14:00)
[2022-06-05 07:53] LABS: CHLORIDE 103 mEq/L (98-107)
[2022-06-05 08:00] VITALS: BP 122/83
[2022-06-05 08:13] LABS: HEMATOCRIT. 40.7 % (42.0-52.0); MEAN CORPUSCULAR HEMOGLOBIN 27.9 pg (28.0-32.0); MEAN CORPUSCULAR VOLUME 87.2 fL (80.0-94.0); MEAN PLATELET VOLUME 8.6 fl (7.4-10.4); PLATELET 149 x1000/uL (130-400); RED BLOOD CELL COUNT 4.67 mill/uL (4.7-6.1); RED CELL DISTRIBUTION WIDTH 15.7 % (11.6-14.6)
[2022-06-05] MEDS: HYDROCODONE/ACETAMINOPHEN 5/325MG TABLET PO PRN (08:54)
[2022-06-05 12:00] VITALS: BP 122/83
[2022-06-05] MEDS ORDERED: SULF1TAB47 MT (12:49)
[2022-06-05] MEDS ORDERED: CEPH500C2 MT (12:49)
[2022-06-05 13:59] LABS: PLATELET ESTIMATE NORMAL
== END 2022-06-05 15:15 | disposition home or self-care (01) | DRG 383 ==
LOC: ER 00:36 → EDBEDREQSVC 06:27 → EDBEDREQ 06:27 → EDBEDREQTM 06:27 → EDBEDREQSVC 11:17 → 8WST 12:40
PROVIDERS: ADMIT Internal Medicine; ATTEND Internal Medicine
DX: L03.115 Cellulitis of right lower limb (principal); D64.9 Anemia, unspecified; F11.90 Opioid use, unspecified, uncomplicated; I10 Essential (primary) hypertension; J44.9 Chronic obstructive pulmonary disease, unspecified; L85.1 Acquired keratosis [keratoderma] palmaris et plantaris; F14.90 Cocaine use, unspecified, uncomplicated; Z79.2 Long term (current) use of antibiotics; Z88.8 Allergy status to other drugs, medicaments and biological substances; Z85.528 Personal history of other malignant neoplasm of kidney; R00.1 Bradycardia, unspecified; D72.819 Decreased white blood cell count, unspecified; I87.8 Other specified disorders of veins
CPT/HCPCS: 36415; 71045; 73610; 80053; 83605; 84145; 85025; 93005; 99285; G0378; J2543; J3370; J7060

== ENCOUNTER 2023-02-04 12:46 | Emergency (ER) | payer MEDICARE, MEDICAID ==
[~2023-02-04] VITALS: Ht 172.7 cm; Wt 80.0 kg
[~2023-02-04 12:46] MED LIST changes: +CEPH500C2 MT; +LISI40TA13 PO; +SULF1TAB47 MT
[2023-02-04 13:59] LABS: CHLORIDE 104 mEq/L (98-107)
[2023-02-04 15:40] LABS: BASOPHILS % 0.7 % (0.0-2.0); EOSINOPHILS % 2.8 % (0.0-5.0); HEMATOCRIT. 43.3 % (42.0-52.0); HEMOGLOBIN. 14.2 g/dL (14.0-18.0); LYMPHOCYTES % 20.6 % (20.0-50.0); MEAN CORPUSCULAR HEMOGLOBIN 28.4 pg (28.0-32.0); MEAN CORPUSCULAR VOLUME 86.9 fL (80.0-94.0); MEAN PLATELET VOLUME 7.9 fl (7.4-10.4); MONOCYTES % 9.3 % (2.0-8.0); NEUTROPHILS % 66.6 % (40.0-76.0); PLATELET 149 x1000/uL (130-400); RED BLOOD CELL COUNT 4.98 mill/uL (4.7-6.1); RED CELL DISTRIBUTION WIDTH 15.2 % (11.6-14.6)
[2023-02-04] MEDS ORDERED: MORPHINE SULFATE 4 MG/ML CPJ (NOT FOR IM USE) IV NR (16:30)
[2023-02-04] MEDS ORDERED: ONDANSETRON HCL 4MG/2ML INJ IV NR (16:30)
[2023-02-04] MEDS ORDERED: MORPHINE SULFATE 4 MG/ML CPJ (NOT FOR IM USE) IV ONE (20:30)
[2023-02-04 23:30] VITALS: BP 126/72
== END 2023-02-05 03:42 | disposition short-term general hospital (02) ==
LOC: ER 12:46 → CANBEDREQ 02-05 22:59
DX: K56.609 Unspecified intestinal obstruction, unspecified as to partial versus complete obstruction (principal); I25.10 Atherosclerotic heart disease of native coronary artery without angina pectoris; I11.9 Hypertensive heart disease without heart failure; J44.9 Chronic obstructive pulmonary disease, unspecified; F11.90 Opioid use, unspecified, uncomplicated; Z88.6 Allergy status to analgesic agent
CPT/HCPCS: 36415; 71045; 74176; 80053; 83605; 83690; 84484; 85025; 93005; 96374; 96375; 96376; 99285; J2270; J2405